=== PATIENT | female | born 1995 | race Caucasian/White ===

== ENCOUNTER 2023-06-27 10:00 | Outpatient (REF) | payer BC, SELFPAY ==
--- NOTE | ~2023-06-27 | US_ITS ---
EXAMINATION: US PELVIS CLINICAL INFORMATION: Retained IUD with some fragments missing after IUD removal. COMPARISON: None available. TECHNIQUE: Ultrasound of the pelvis is performed using both transabdominal and transvaginal transducers along with Doppler. Transvaginal imaging is performed due to inadequate visualization transabdominally. FINDINGS: UTERUS: The uterus is anteverted and measures 9.0 x 3.9 x 5.1 cm. The double wall endometrial thickness is 6 mm. There is trace fluid seen in the endometrial canal. No retained fragments of an IUD are visualized. The uterus is smooth in contour and has normal myometrial echogenicity. No visible fibroid. ADNEXA: Both ovaries are visualized. There is normal color flow to the adnexa. There is no ovarian torsion. There is no pelvic ascites or fluid collection. Right ovary measures 3.1 x 2.1 x 2.7 cm for a volume of 10.6 mL and appears normal. Left ovary measures 3.9 x 2.7 x 2.3 cm for a volume of 13 mL which includes a 1.8 cm benign follicular cyst. US/US pelvic and transvaginal IMPRESSION: No retained fragments of an IUD are visualized.
== END 2023-06-27 10:01 | disposition home or self-care (01) ==
LOC: HO.US 10:00
PROVIDERS: Visit Provider Internal Medicine
DX: T83 Complications of genitourinary prosthetic devices, implants and grafts (principal)
CPT/HCPCS: 76830; 76856